=== PATIENT | male | born 1955 | race Caucasian/White ===

== ENCOUNTER → 2021-01-26 | Outpatient (CLI) | payer BC ==
--- NOTE | 2021-01-26 12:27 | RAD ---
3 views the right shoulder without comparison for right shoulder pain. FINDINGS: There is no fracture, dislocation, or acute osseous abnormality identified. There is deform ity of the right proximal humeral metadiaphysis, with some suggestion of expansile mixed trabecula al analisa with irregular cortical thickening. Findings may represent Paget's disease of the humerus, or cou ld be related to prior humeral trauma. Osseous neoplasm is much less likely. Dedicated radiographs of the right humerus could be of benefit. There are degenerative changes of the acromioclavicular joint . There appears to be prominent distal clavicular bone spur. IMPRESSION: 1. Expansile mixed abnormality of the proximal humeral metadiaphysis with appearance most suggestive of Paget's disease. Less likely considerations would be sequelae of prior humeral trauma or neoplasm. Recommend dedicated right humeral radiographs for complete characterization as a first step. 2. No acute osseous abnormality right shoulder. 3. Degenerative changes acromioclavicular joint. Electronically signed by: Ramana Villasneor MD (01/26/2021 12:24 PM) [id number]
== END ==
LOC: RAD 08:24
PROVIDERS: ATTEND Physician Assistant
DX: M19.011 Primary osteoarthritis, right shoulder (principal); M21.921 Unspecified acquired deformity of right upper arm
CPT/HCPCS: 73030

== ENCOUNTER → 2021-02-16 | Outpatient (CLI) | payer BC ==
--- NOTE | 2021-02-16 16:10 | RAD ---
XR HUMERUS_RT 2 VIEWS Clinical indications: Reason: RIGHT HUMERUS PAIN, PAGETS DISEASE / Spl. Instructions: / History: Findings: No acute fracture or dislocation or osteolytic process is evident. No AC joint separation is seen. There is cortical thickening and enlargement of the right humerus consistent with Paget's di sease. IMPRESSION: No acute osseous abnormality is evident. Paget's disease of the right humerus. Electronically signed by: Awais Juarez MD (02/16/2021 4:07 PM) [id number]
== END ==
LOC: RAD 08:25
PROVIDERS: ATTEND Physician Assistant
DX: M88.82 Osteitis deformans of upper arm (principal); M25.511 Pain in right shoulder
CPT/HCPCS: 73060